=== PATIENT | male | born 1940 | race Caucasian/White ===

== ENCOUNTER 2019-06-16 19:20 | Emergency (ER) | payer MEDICARE, MEDICAID ==
[~2019-06-16] VITALS: Ht 167.6 cm; Wt 72.7 kg
[2019-06-16 19:27] VITALS: BP 143/81
--- NOTE | 2019-06-16 20:00 | NUR ---
Per family patient [place] and had to move in with family in [place] with a on Hospice. Family reports they have not been able to fine him a PCP and his personality has changed over the last few months, he has become increasingly angry. He was [facility] after several falls, family said they tried to find placement for him but they could no afford it. Today he was at [facility] because he called EMS with chest pain.
--- NOTE | 2019-06-16 20:34 | NUR ---
Patient with BRIAN Almaraz now.
[2019-06-16] MEDS ORDERED: risperiDONE 0.5mg tablet PO ONE (20:45)
[2019-06-16] MEDS ORDERED: RISP0.5T3 PO (20:47)
== END 2019-06-16 21:34 | disposition home or self-care (01) ==
LOC: ER 19:21
DX: F31.9 Bipolar disorder, unspecified (principal); Z88.5 Allergy status to narcotic agent
CPT/HCPCS: 99284

== ENCOUNTER 2019-06-18 06:04 | Emergency (ER) | payer MEDICARE, MEDICAID ==
[~2019-06-18] VITALS: Ht 170.2 cm; Wt 78.2 kg
[~2019-06-18 06:04] MED LIST: RISP0.5T3 PO
[2019-06-18 06:07] VITALS: BP 133/67
[2019-06-18] MEDS ORDERED: ketorolac trometh inj. 60 MG/2 ML VIAL IM ONE (06:35)
[2019-06-18] MEDS ORDERED: CYCL-1 PO (06:36)
--- NOTE | 2019-06-18 06:59 | NUR ---
Pt was asked if I could call family for him and let them know where he is and see about picking him up when discharged. Pt gave conscent and phone # of his "eldest daughter Kasie": [phone] Number called, currently no answer.
--- NOTE | 2019-06-18 07:42 | NUR ---
Message left on phone number requesting a "Kasie" to call back to hospital (ED number left).
--- NOTE | 2019-06-18 08:05 | NUR ---
Pts daughter Kasie returned phone call. Daughter was able to give phone numbers of her sister and brother in law whom pt was previously living with. Araceli: [phone] Mark: [phone] Araceli was called and left message to make a return call.
--- NOTE | 2019-06-18 08:11 | NUR ---
Received call from pts daughter Araceli, daughter states she should be able to come and get pt and plan to take pt to [facility] to see about possible services that could be obtained for pt. ETA "about 30 minutes".
--- NOTE | 2019-06-18 08:13 | NUR ---
Pt updated on contacting of family, pt looking forward to their arrival.
== END 2019-06-18 09:13 | disposition home or self-care (01) ==
LOC: ER 06:05
DX: S16.1XXA Strain of muscle, fascia and tendon at neck level, initial encounter (principal); Z88.5 Allergy status to narcotic agent; W18.39XA Other fall on same level, initial encounter; Y93.89 Activity, other specified; Y92.89 Other specified places as the place of occurrence of the external cause; Y99.9 Unspecified external cause status
CPT/HCPCS: 96372; 99284; J1885

== ENCOUNTER 2019-08-03 08:33 | Emergency (ER) | payer MEDICARE, MEDICAID ==
[~2019-08-03] VITALS: Ht 172.7 cm; Wt 170.0 kg
[~2019-08-03 08:33] MED LIST changes: +CYCL-1 PO
[2019-08-03 09:19] LABS: BASOPHILS % (AUTO) 0.6 % (0-1); EOSINOPHILS # (AUTO) 0.1 X10'3 (0-0.9); EOSINOPHILS % (AUTO) 1.1 % (0-6); HEMATOCRIT 34.3 % (42.0-52.0); HEMOGLOBIN 11.8 g/dl (14.0-17.9); LYMPHOCYTES # (AUTO) 1.9 X10'3 (1.1-4.8); LYMPHOCYTES % (AUTO) 24.5 % (21-51); MEAN CORPUSCULAR HEMOGLOBIN 33.1 PG (27.0-31.0); MEAN CORPUSCULAR HGB CONC 34.4 g/dL (33.0-36.5); MEAN CORPUSCULAR VOLUME 96.1 FL (78-98); MEAN PLATELET VOLUME 8.6 FL (7.4-10.4); MONOCYTES # (AUTO) 0.5 X10'3 (0-0.9); MONOCYTES % (AUTO) 6.7 % (2-12); NEUTROPHILS # (AUTO) 5.2 X10'3 (1.8-7.7); NEUTROPHILS % (AUTO) 67.1 % (42-75); PLATELET COUNT 158 X10'3 (140-440); RED BLOOD COUNT 3.56 X10'6 (4.70-6.10); RED CELL DISTRIBUTION WIDTH 14.2 % (11.5-14.5); WHITE BLOOD COUNT 7.7 X10'3 (4.5-11.0)
[2019-08-03 09:25] LABS: PARTIAL THROMBOPLASTIN TIME 26 SECONDS (22-32)
[2019-08-03 09:26] LABS: ALANINE AMINOTRANSFERASE 17 U/L (12-78); ALBUMIN/GLOBULIN RATIO 0.8 (1.1-1.5); ALKALINE PHOSPHATASE 121 IU/L (46-116); ANION GAP 7 (8-16); ASPARTATE AMINO TRANSFERASE 18 U/L (10-37); BILIRUBIN,TOTAL 0.6 MG/DL (0.1-1.0); BLOOD UREA NITROGEN 35 MG/DL (7-18); BUN/CREATININE RATIO 16.8 (5.4-32.0); CHLORIDE 106 MMOL/L (99-107); CREATININE 2.08 MG/DL (0.60-1.10); GLUCOSE 150 MG/DL (70-104); POTASSIUM 4.4 MMOL/L (3.5-5.1); SODIUM 141 MMOL/L (135-145); TOTAL CARBON DIOXIDE 28.3 MMOL/L (24-32); eGFR 31 ML/MIN
[2019-08-03 10:12] LABS: CLARITY,URINE CLEAR (Clear); COLOR,URINE YELLOW (Yellow)
[2019-08-03 10:15] LABS: UA COLLECTION TYPE CLN CATCH MIDSTREAM
[2019-08-03 10:25] LABS: MUCUS STRANDS FEW /LPF (Neg); SQUAMOUS EPITHELIAL CELL,UR FEW /LPF (FEW)
[2019-08-03 10:27] LABS: BACTERIA,URINE FEW /HPF (Neg)
[2019-08-03 10:28] LABS: RBC,URINE 0-2 /HPF (0-2)
[2019-08-03] MEDS ORDERED: NITR100C6 PO (10:44)
[2019-08-03 11:01] VITALS: BP 124/74
== END 2019-08-03 11:05 | disposition home or self-care (01) ==
LOC: ER 08:33
DX: N39.0 Urinary tract infection, site not specified (principal); M25.511 Pain in right shoulder; M25.512 Pain in left shoulder; I25.10 Atherosclerotic heart disease of native coronary artery without angina pectoris; I25.2 Old myocardial infarction; E11.9 Type 2 diabetes mellitus without complications; I50.9 Heart failure, unspecified; F17.200 Nicotine dependence, unspecified, uncomplicated; Z95.0 Presence of cardiac pacemaker; Z88.5 Allergy status to narcotic agent
CPT/HCPCS: 36415; 71045; 80053; 81001; 84484; 85025; 85610; 85730; 87088; 93005; 99284